=== PATIENT | female | born 1990 | race Caucasian/White ===

== ENCOUNTER 2019-06-23 07:10 | Inpatient (IN) ==
[2019-06-23] MEDS ORDERED: CeFAZolin 2,000 MG/50 ML BAG IVPB ONE (07:20)
[2019-06-23] MEDS ORDERED: Metoclopramide 10 MG/2 ML VIAL IVP ONE (07:20)
[2019-06-23] MEDS ORDERED: Famotidine 20 MG/2 ML VIAL IVP ONE (07:20)
[2019-06-23] MEDS ORDERED: Ringers Solution, Lactated 1,000 ML IVC ONE (07:20)
[2019-06-23] MEDS ORDERED: Oxytocin 20 units/ LR 1000 mL 20 UNIT/1,000 ML BAG IVC ONE (07:20)
[2019-06-23] MEDS ORDERED: Oxytocin 20 units/ LR 1000 mL 20 UNIT/1,000 ML BAG IVC SCH ×2 (07:30→13:03)
[2019-06-23] MEDS ORDERED: Ringers Solution, Lactated 1,000 ML IVC SCH (07:30)
[2019-06-23] MEDS ORDERED: CeFAZolin Syr 3,000MG/30 ML 3,000 MG/30 ML SYRINGE IVPB ONE (07:58)
[2019-06-23 08:13] LABS: Basophils % 0.2 %; Eosinophils # 0.1 K/mcL (0.0-0.6); Eosinophils % 1.6 %; Hematocrit 35.1 % (35.3-44.9); Hemoglobin 11.1 g/dL (11.5-15.4); Immature Granulocytes % 0.3 % (0-4); Lymphocytes # 1.5 K/mcL (0.6-4.6); Lymphocytes % 24.8 %; Mean Corpuscular HGB Conc 31.6 g/dL (31.6-35.5); Mean Corpuscular Hemoglobin 25.9 pg (28.0-33.3); Mean Corpuscular Volume 81.8 fL (83.0-100.0); Mean Platelet Volume 10.5 fL (9.4-12.4); Monocytes # 0.3 K/mcL (0.0-1.3); Monocytes % 5.6 %; Neutrophils # 4.1 K/mcL (1.6-8.9); Platelet Count 205 K/mcL (140-400); Red Blood Count 4.29 M/mcL (3.82-4.97); Red Cell Distribution Width 14.6 % (11.5-14.5); Segmented Neutrophils % 67.5 %; White Blood Count 6.1 K/mcL (4.3-11.1)
[2019-06-23] MEDS ORDERED: *HR* Morphine Sulfate/PF 10 MG/10 ML AMPUL ONE (08:36)
[2019-06-23] MEDS ORDERED: *HR* FentaNYL (PF) 100 MCG/2 ML VIAL ONE (08:36)
[2019-06-23] MEDS ORDERED: EPHEDrine 50 MG/ML VIAL ONE (08:36)
[2019-06-23] MEDS ORDERED: *HR* Phenylephrine 10 MG/ML VIAL ONE (08:37)
[2019-06-23] MEDS ORDERED: *HR* Oxytocin 10 UNIT/ML VIAL IM ONE (08:38)
[2019-06-23 09:08] LABS: Amphetamine Screen,Urine Negative ng/mL (Cutoff=1000); Barbiturate Screen,Urine Negative ng/mL (Cutoff=200); Benzodiazepines Screen,Urine Negative ng/mL (Cutoff=200); Cannabinoid Screen,Urine Negative ng/mL (Cutoff = 50); Cocaine Screen,Urine Negative ng/mL (Cutoff= 300); Opiate Screen,Urine Positive ng/mL (Cutoff=300); Phencyclidine Screen,Urine Negative ng/mL (Cutoff=25)
[2019-06-23] MEDS ORDERED: Lidocaine -MPF 2% 5 ML VIAL ONE (09:09)
[2019-06-23] MEDS ORDERED: Ondansetron 4 MG/2 ML VIAL ONE (10:19)
[2019-06-23] MEDS ORDERED: *HR* HYDROmorphone (PF) 1 MG/ML SYRINGE IVP PRN (11:50)
[2019-06-23] MEDS ORDERED: Ibuprofen 400 MG TABLET PO PRN (11:50)
[2019-06-23] MEDS ORDERED: *HR* OxyCODONE/APAP 5/325 TABLET PO PRN (11:50)
[2019-06-23] MEDS ORDERED: Morphine Sulfate 2 MG/ML SYRINGE IVP PRN (11:50)
[2019-06-23] MEDS ORDERED: Naloxone 0.4 MG/ML INJ IVP PRN (11:50)
[2019-06-23] MEDS ORDERED: Ondansetron 4 MG/2 ML VIAL IVP PRN ×2 (11:50→13:03)
[2019-06-23] MEDS ORDERED: Acetaminophen IV 1,000 MG/100 ML INFUS..BTL IVPB STA (11:55)
[2019-06-23] MEDS ORDERED: Sennosides 8.6 MG TABLET PO PRN (13:03)
[2019-06-23] MEDS ORDERED: *HR* OxyCODONE Immed Rel 5 MG TABLET PO PRN (13:03)
[2019-06-23] MEDS ORDERED: Acetaminophen 325 MG TABLET PO PRN (13:03)
[2019-06-23] MEDS ORDERED: Metoclopramide 10 MG/2 ML VIAL IVP PRN (13:03)
[2019-06-23] MEDS ORDERED: Simethicone 80 MG TAB.CHEW PO PRN (13:03)
[2019-06-23] MEDS: cephALEXin 500 MG CAPSULE PO SCH ×2 (14:57→20:03)
[2019-06-23] MEDS: metroNIDAZOLE 500 MG TABLET PO SCH ×2 (14:57→20:03)
[2019-06-23] MEDS: *HR* OxyCODONE/APAP 5/325 TABLET PO PRN ×2 (16:09→23:47)
[2019-06-23] MEDS: Ibuprofen 600 MG TABLET PO PRN (20:08)
[2019-06-24] MEDS: Ibuprofen 600 MG TABLET PO PRN ×2 (02:25→10:50)
[2019-06-24] MEDS ORDERED: Ringers Solution, Lactated 1,000 ML ONE (04:52)
[2019-06-24 07:41] VITALS: BP 132/75
[2019-06-24] MEDS: *HR* OxyCODONE/APAP 5/325 TABLET PO PRN (07:50)
[2019-06-24] MEDS: cephALEXin 500 MG CAPSULE PO SCH (07:50)
[2019-06-24] MEDS: metroNIDAZOLE 500 MG TABLET PO SCH (07:50)
[2019-06-24] MEDS ORDERED: Prenatal Vit/FA 1 EACH TABLET PO SCH (09:00)
[2019-06-24] MEDS ORDERED: Budesonide/Formoterol 80/4.5 1 PUFF INH IH SCH (10:00)
[2019-06-24] MEDS ORDERED: Etonogestrel 68 MG IMPLANT IL ONE (10:17)
[2019-06-24] MEDS ORDERED: Lidocaine 1% 20 ML MDV ID ONE (10:17)
== END 2019-06-24 12:50 | disposition home or self-care (01) | DRG 540 ==
LOC: 1NENULAB 07:10 → 1NENUOBS 13:01
PROVIDERS: ADMIT Obstetrics & Gynecology; ATTEND Obstetrics & Gynecology